=== PATIENT | female | born 1975 | race Caucasian/White ===

== ENCOUNTER → 2022-11-04 | Outpatient (CLI) | payer OTHER ==
[2022-11-05 03:06] LABS: RUBEOLA (MEASLES) IGG >300.0 AU/mL (Immune >16.4)
[2022-11-05 06:06] LABS: RUBELLA AB IGG-REFLAB 8.22 index (Immune >0.99)
[2022-11-06 06:07] LABS: QUANTIFERON, TB GOLD PLUS Positive (Negative)
== END | disposition home or self-care (01) ==
LOC: LABMN 08:32
PROVIDERS: ATTEND Family Medicine
DX: Z20.828 Contact with and (suspected) exposure to other viral communicable diseases (principal); Z11.3 Encounter for screening for infections with a predominantly sexual mode of transmission; Z20.1 Contact with and (suspected) exposure to tuberculosis; Z02.89 Encounter for other administrative examinations
CPT/HCPCS: 86480; 86592; 86706; 86735; 86762; 86765; 86787; 87340; 87491; 87591